=== PATIENT | male | born 1950 | race Two or more races ===

== ENCOUNTER 2019-08-27 11:42 | Inpatient (IN) | payer OTHER, MEDICARE ==
[2019-08-27] MEDS ORDERED: IPRATROPIUM-ALBUTEROL 3 ML NEB INHALATION STA (12:02)
[2019-08-27] MEDS ORDERED: SODIUM CHLORIDE 0.9% 500 ML 500 ML IV STA (12:02)
--- NOTE | 2019-08-27 12:31 | ED ---
General Adult HPI - General Chief complaint: Shortness of Breath Stated complaint: SOB Time Seen by Provider: 08/27/19 11:45 Source: patient, family, RN notes reviewed, old records reviewed Mode of arrival: wheelchair Limitations: physical limitation - History of Present Illness Initial comments: This a 69-year-old male who presents emergency Department complaining of difficulty breathing. Patient states she has a history of COPD. Patient states he just hasn't been feeling well over the 2 weeks. Patient states he's had an intermittent fever. Patient denies any chest pain. Patient denies any palpitations. Patient states he's had a fever up 100.5. Patient denies any sputum production but he states he has had a cough for the whole time. Patient states he also feels tired. - Related Data Allergies Allergy/AdvReac Type Severity Reaction Status Date / Time No Known Allergies Allergy Verified 08/27/19 11:49 Review of Systems ROS Statement: Those systems with pertinent positive or pertinent negative responses have been documented in the HPI. ROS Other: All systems not noted in ROS Statement are negative. Past Medical History Past Medical History: Asthma, Diabetes Mellitus History of Any Multi-Drug Resistant Organisms: None Reported Past Surgical History: Orthopedic Surgery Additional Past Surgical History / Comment(s): tonja knee surgery. Past Psychological History: No Psychological Hx Reported Smoking Status: Current every day smoker Past Alcohol Use History: None Reported Past Drug Use History: None Reported General Exam - General Exam Comments Initial Comments: GENERAL: Patient is well-developed and well-nourished. Patient is nontoxic and well- hydrated and is in moderate distress. ENT: Neck is soft and supple. No significant lymphadenopathy is noted. Oropharynx is clear. Moist mucous membranes. Neck has full range of motion without eliciting any pain. EYES: The sclera were anicteric and conjunctiva were pink and moist. Extraocular movements were intact and pupils were equal round and reactive to light. Eyeli ds were unremarkable. PULMONARY: Patient has crackles in the right base. CARDIOVASCULAR: There is a regular rate and rhythm without any murmurs gallops or rubs. ABDOMEN: Soft and nontender with normal bowel sounds. SKIN: Skin is clear with no lesions or rashes and otherwise unremarkable. NEUROLOGIC: Patient is alert and oriented x3. Cranial nerves II through XII are grossly intact. Motor and sensory are also intact. Normal speech, volume and content. Symmetrical smile. MUSCULOSKELETAL: Normal extremities with adequate strength and full range of motion. LYMPHATICS: No significant lymphadenopathy is noted PSYCHIATRIC: Normal psychiatric evaluation. Limitations: physical limitation Course Vital Signs 08/27/19 08/27/19 08/27/19 11:43 12:26 12:56 Temperature 97.7 F Pulse Rate 41 L 82 Respiratory 16 20 Rate Blood Pressure 135/65 O2 Sat by Pulse 97 Oximetry 08/27/19 13:05 Temperature Pulse Rate 82 Respiratory Rate Blood Pressure O2 Sat by Pulse Oximetry Medical Decision Making - Medical Decision Making EKG shows normal sinus rhythm at 80 bpm [place] interval 184 QRS is 96 QT interval 346 QTC is 418. Patient's EKG shows no ST segment elevation or depression X-ray shows right lower lobe pneumonia. This occurred at 145 p.m. I started the patient on antibiotics. I spoke with expiratory agreed to admit the patient admitted the patient wrote admitting orders. - Lab Data Result diagrams: 08/27/19 12:07 08/27/19 12:07 Lab Results 08/27/19 08/27/19 08/27/19 Range/Units 12:07 12:07 12:07 WBC 11.8 H (3.8-10.6) k/uL RBC 4.87 (4.30-5.90) m/uL Hgb 15.2 (13.0-17.5) gm/dL Hct 44.2 (39.0-53.0) % MCV 90.8 (80.0-100.0) fL MCH 31.2 (25.0-35.0) pg MCHC 34.4 (31.0-37.0) g/dL RDW 13.0 (11.5-15.5) % Plt Count 231 (150-450) k/uL Neutrophils % 91 % Lymphocytes % 4 % Monocytes % 4 % Eosinophils % 0 % Basophils % 0 % Neutrophils # 10.7 H (1.3-7.7) k/uL Lymphocytes # 0.5 L (1.0-4.8) k/uL Monocytes # 0.5 (0-1.0) k/uL Eosinophils # 0.0 (0-0.7) k/uL Basophils # 0.0 (0-0.2) k/uL PT 10.3 (9.0-12.0) sec INR 1.0 (<1.2) APTT 28.5 (22.0-30.0) sec D-Dimer 0.73 H (<0.60) mg/L FEU Sodium 140 (137-145) mmol/L Potassium 5.4 H (3.5-5.1) mmol/L Chloride 108 H (98-107) mmol/L Carbon Dioxide 16 L (22-30) mmol/L Anion Gap 16 mmol/L BUN 40 H (9-20) mg/dL Creatinine 1.73 H (0.66-1.25) mg/dL Est GFR (CKD-EPI)AfAm 46 (>60 ml/min/1.73 sqM) Est GFR (CKD-EPI)NonAf 40 (>60 ml/min/1.73 sqM) Glucose 129 H (74-99) mg/dL Plasma Lactic Acid Deon (0.7-2.0) mmol/L Calcium 8.2 L (8.4-10.2) mg/dL Magnesium 1.7 (1.6-2.3) mg/dL Total Bilirubin 0.7 (0.2-1.3) mg/dL AST 50 (17-59) U/L ALT 25 (4-49) U/L Alkaline Phosphatase 59 (38-126) U/L Troponin I (0.000-0.034) ng/mL NT-Pro-B Natriuret Pep pg/mL Total Protein 6.6 (6.3-8.2) g/dL Albumin 3.9 (3.5-5.0) g/dL 08/27/19 08/27/19 08/27/19 Range/Units 12:07 12:07 12:07 WBC (3.8-10.6) k/uL RBC (4.30-5.90) m/uL Hgb (13.0-17.5) gm/dL Hct (39.0-53.0) % MCV (80.0-100.0) fL MCH (25.0-35.0) pg MCHC (31.0-37.0) g/dL RDW (11.5-15.5) % Plt Count (150-450) k/uL Neutrophils % % Lymphocytes % % Monocytes % % Eosinophils % % Basophils % % Neutrophils # (1.3-7.7) k/uL Lymphocytes # (1.0-4.8) k/uL Monocytes # (0-1.0) k/uL Eosinophils # (0-0.7) k/uL Basophils # (0-0.2) k/uL PT (9.0-12.0) sec INR (<1.2) APTT (22.0-30.0) sec D-Dimer (<0.60) mg/L FEU Sodium (137-145) mmol/L Potassium (3.5-5.1) mmol/L Chloride (98-107) mmol/L Carbon Dioxide (22-30) mmol/L Anion Gap mmol/L BUN (9-20) mg/dL Creatinine (0.66-1.25) mg/dL Est GFR (CKD-EPI)AfAm (>60 ml/min/1.73 sqM) Est GFR (CKD-EPI)NonAf (>60 ml/min/1.73 sqM) Glucose (74-99) mg/dL Plasma Lactic Acid Deon 2.1 H* (0.7-2.0) mmol/L Calcium (8.4-10.2) mg/dL Magnesium (1.6-2.3) mg/dL Total Bilirubin (0.2-1.3) mg/dL AST (17-59) U/L ALT (4-49) U/L Alkaline Phosphatase (38-126) U/L Troponin I <0.012 (0.000-0.034) ng/mL NT-Pro-B Natriuret Pep 1250 pg/mL Total Protein (6.3-8.2) g/dL Albumin (3.5-5.0) g/dL Disposition Clinical Impression: Pneumonia Disposition: ADMITTED IP TO THIS [facility] Time of Disposition: 14:20
--- NOTE | 2019-08-27 12:37 | XR ---
EXAMINATION TYPE: XR chest 2V DATE OF EXAM: 08/27/2019 COMPARISON: NONE HISTORY: Difficulty breathing TECHNIQUE: Frontal and lateral views of the chest are obtained. FINDINGS: Some minimal patchy densities present in the mid lungs. No evident pneumothorax or pleural effusion. Cardiac mediastinal silhouette, pulmonary vascularity and ambar are within normal limits. A madeleine is dense. IMPRESSION: Correlate for pneumonia. Follow-up recommended.
[2019-08-27 12:42] LABS: Basophils % (A) 0 %; Eosinophils % (A) 0 %; HCT 44.2 % (39.0-53.0); HGB 15.2 gm/dL (13.0-17.5); Lymphocytes # (A) 0.5 k/uL (1.0-4.8); Lymphocytes % (A) 4 %; MCH 31.2 pg (25.0-35.0); MCHC 34.4 g/dL (31.0-37.0); MCV 90.8 fL (80.0-100.0); Mean Platelet Volume 7.7; Monocytes # (A) 0.5 k/uL (0-1.0); Monocytes % (A) 4 %; Neutrophils # (A) 10.7 k/uL (1.3-7.7); Neutrophils % (A) 91 %; Platelet Count 231 k/uL (150-450); RBC 4.87 m/uL (4.30-5.90); WBC 11.8 k/uL (3.8-10.6)
[2019-08-27 12:53] LABS: Albumin 3.9 g/dL (3.5-5.0); Calcium 8.2 mg/dL (8.4-10.2); Magnesium 1.7 mg/dL (1.6-2.3); Potassium 5.4 mmol/L (3.5-5.1); Total Bilirubin 0.7 mg/dL (0.2-1.3); Total Protein 6.6 g/dL (6.3-8.2)
[2019-08-27 13:04] LABS: Partial Thromboplastin Time 28.5 sec (22.0-30.0); Prothrombin Time 10.3 sec (9.0-12.0)
[2019-08-27 13:08] LABS: D-Dimer 0.73 mg/L FEU (<0.60)
[2019-08-27] MEDS ORDERED: cefTRIAXone IN SWFI 1,000 MG/10 ML SYRINGE IVP STA (14:14)
[2019-08-27] MEDS ORDERED: PNEUMONIA PROTOCOL UTILIZED 1 EACH MISC PO PRN (14:22)
--- NOTE | 2019-08-27 14:23 | CT ---
EXAMINATION TYPE: CT chest angio for PE DATE OF EXAM: 08/27/2019 COMPARISON: Radiograph same day HISTORY: 69-year-old male Difficulty breathing and cough x2 weeks. TECHNIQUE: Contiguous axial scanning of the chest performed with IV Contrast, patient injected with 8 0ml mL of Isovue 370. Coronal/sagittal MIP reconstructions performed. CT DLP: 955.8 mGycm Automated exposure control for dose reduction was used. FINDINGS: Heart normal size without pericardial effusion. Aorta normal caliber with conventional branching anatomy. Scattered borderline and mildly enlarged mediastinal and right hilar lymph nodes. These measure up to 1.1 cm left tracheobronchial angle, 1.9 cm subcarinal, and 1.1 cm right infrahilar. Scattered pleural-based calcifications on the right and slight volume loss right hemithorax. Possible sequela of prior empyema, pleurodesis, or hemothorax. Multifocal patchy peripheral groundglass opacities. No pleural effusion. Gallbladder borderline hydropic at 4.2 cm wide. No surrounding inflammation. Probably related to fast ing state. If right upper quadrant pain, ultrasound or HIDA scan. Bones: Mild anterior endplate spondylosis lower thoracic spine. IMPRESSION: 1. MULTIFOCAL BILATERAL PERIPHERAL GROUNDGLASS INFILTRATES. SOME DIFFERENTIAL CONSIDERATIONS INCLUDE ATYPICAL PNEUMONIAS (INCLUDING COVID PNEUMONIA), INTERSTITIAL PNEUMONITIS (SUCH NSIP OR FIELD MERCHANDISER), AND HYPERSENSITIVITY PNEUMONITIS. 2. A FEW BORDERLINE and MILDLY ENLARGED MEDIASTINAL AND RIGHT HILAR LYMPH NODES MEASURING UP TO 1.1 C M AT THE RIGHT HILUM AND 1.9 CM SUBCARINAL. PROBABLY REACTIVE. 3. VOLUME LOSS IN THE RIGHT HEMITHORAX WITH PLEURAL CALCIFICATIONS, POSSIBLE SEQUELA OF PRIOR PLEUROD ESIS OR OLD EPISODE OF EMPYEMA/PNEUMOTHORAX.
[2019-08-27] MEDS ORDERED: AZITHROMYCIN 500 MG in SODIUM CHLORIDE 0.9% 250 ML IVPB STA (14:25)
[2019-08-27 17:30] LABS: Glucose,Whole Blood 63 mg/dL (75-99)
[2019-08-27 17:52] LABS: Glucose,Whole Blood 87 mg/dL (75-99)
[2019-08-27] MEDS ORDERED: IPRATROPIUM-ALBUTEROL 3 ML NEB INHALATION PRN (18:00)
[2019-08-27] MEDS: SODIUM CHLORIDE 0.9% 1,000 ML IV SCH (19:18)
[2019-08-27 20:41] LABS: Glucose,Whole Blood 86 mg/dL (75-99)
[2019-08-27] MEDS: INSULIN ASPART (NovoLOG) 100 UNIT/ML VIAL SQ SCH (20:42)
[2019-08-27] MEDS: ATORVASTATIN 40 MG TAB PO SCH (20:47)
[2019-08-27] MEDS: ASPIRIN 81 MG PO SCH (20:47)
[2019-08-27] MEDS ORDERED: INSULIN ASPART (NovoLOG) 100 UNIT/ML VIAL SQ SCH (21:00)
[2019-08-28] MEDS: SODIUM CHLORIDE 0.9% 1,000 ML IV SCH ×3 (05:16→17:34)
[2019-08-28 07:19] LABS: Glucose,Whole Blood 105 mg/dL (75-99)
[2019-08-28] MEDS: INSULIN ASPART (NovoLOG) 100 UNIT/ML VIAL SQ SCH ×4 (07:20→20:05)
--- NOTE | 2019-08-28 08:02 | XR ---
EXAMINATION TYPE: XR chest 1V portable DATE OF EXAM: 08/28/2019 COMPARISON: 08/27/2019 INDICATION: Covid positive, shortness of breath TECHNIQUE: Single frontal view of the chest is obtained. FINDINGS: The heart size is normal. The pulmonary vasculature is normal. Mild scattered infiltrates are within the right mid and lower lung field. Findings are similar to com parison. IMPRESSION: 1. Mild scattered peripheral right mid and lower lung field infiltrates. Exam appears stable from zeenat or
[2019-08-28] MEDS: HYDROCHLOROTHIAZIDE 12.5 MG CAP PO SCH (09:19)
[2019-08-28] MEDS: LISINOPRIL 20 MG TAB PO SCH (09:19)
[2019-08-28] MEDS: DEXAMETHASONE 4 MG TAB PO SCH (10:36)
[2019-08-28] MEDS: ENOXAPARIN 40 MG/0.4 ML SYRINGE SQ SCH (10:36)
[2019-08-28] MEDS ORDERED: TIOTROPIUM 18 MCG/PUFF INHALER INHALATION PRN (11:13)
--- NOTE | 2019-08-28 11:48 | P.CNPUL ---
History of Present Illness Consult date: 08/28/19 Reason for consult: dyspnea Chief complaint: Dyspnea, intermittent fever, COVID 19 History of present illness: 69-year-old white male patient of Dr. Cueva, who presented to the emergency department on 08/01/2019 with complaints of 2 week history of increasing shortness of breath, not feeling well, intermittent fever. He is fever was up to 100.5F, his cough is dry, no sputum production, overall patient is feeling fatigued. Patient does have a history of COPD, is a current every day smoker, diabetes mellitus, hypertension, hyperlipidemia, osteoarthritis with previous history of bilateral knee surgeries. Patient has been afebrile while in the hospital, vital signs are stable, patient is on room air, pulse ox is 97%. Admission lab work showed white blood cell count of 11.8, hemoglobin is 15.2, d- dimer was 0.73, sodium is 140, potassium is 5.4, chloride is 108, CO2 16, BUN is 40, creatinine is 1.73, LFTs were within normal limits, LDH was 734, proBNP was 1250, troponin was less than 0.012, CTA chest was obtained showing multifocal bilateral peripheral groundglass infiltrates with saturation for atypical pneumonia, interstitial pneumonitis. A few borderline and mildly enlarged mediastinal and right hilar lymph nodes measuring up to 1.1 cm in the right hilum and 1.9 cm subcarinal, likely a reactive. Volume loss in the right hemithorax with pleural calcifications possibly related to prior pleurodesis or old episode of empyema/pneumothorax. Patient's findings were suspicious for COVID 19 related pneumonitis. Patient was empirically placed on accommodation of Rocephin and azithromycin, and today his Covid 19 PCR came back positive. he remains in droplet precautions, today he is calm and comfortable, on room air his pulse ox is 95%, no complaints of chest pain, some shortness of breath and a dry nonproductive cough, breathing seems to be and nonlabored, patient has been afebrile since admission. Review of Systems All systems: negative Constitutional: Reports lethargy, Reports weakness, Denies chills, Denies fever Eyes: denies blurred vision, denies pain Ears, nose, mouth and throat: Denies headache, Denies sore throat Cardiovascular: Denies chest pain, Denies shortness of breath Respiratory: Reports cough, Reports dyspnea Gastrointestinal: Denies abdominal pain, Denies diarrhea, Denies nausea, Denies vomiting Musculoskeletal: Denies myalgias Integumentary: Denies pruritus, Denies rash Neurological: Denies numbness, Denies weakness Psychiatric: Denies anxiety, Denies depression Endocrine: Denies fatigue, Denies weight change Past Medical History Past Medical History: Asthma, Diabetes Mellitus, Hyperlipidemia, Hypertension History of Any Multi-Drug Resistant Organisms: None Reported Past Surgical History: Orthopedic Surgery Additional Past Surgical History / Comment(s): tonja knee surgery. Past Psychological History: No Psychological Hx Reported Smoking Status: Former smoker Past Alcohol Use History: None Reported Past Drug Use History: None Reported - Past Family History Father Family Medical History: Diabetes Mellitus Medications and Allergies Home Medications Medication Instructions Recorded Confirmed Type Aspirin EC [Ecotrin Low Dose] 81 mg PO HS 08/27/19 08/27/19 History Atorvastatin [Lipitor] 40 mg PO DAILY 08/27/19 08/27/19 History Budesonide/Formoterol Fumarate 2 puff INHALATION RT-BID 08/27/19 08/27/19 Histo ry [Symbicort 80-4.5 Mcg Inhaler] Cholecalciferol (Vitamin D3) 50 mcg PO HS 08/27/19 08/27/19 History [Vitamin D3] Glimepiride [Amaryl] 2 mg PO AC-BRKFST 08/27/19 08/27/19 History Hydrochlorothiazide 12.5 mg PO DAILY 08/27/19 08/27/19 History Lisinopril 40 mg PO DAILY 08/27/19 08/27/19 History metFORMIN HCL [Glucophage] 1,000 mg PO HS 08/27/19 08/27/19 History metFORMIN HCL [Glucophage] 500 mg PO DAILY 08/27/19 08/27/19 History Allergies Allergy/AdvReac Type Severity Reaction Status Date / Time No Known Allergies Allergy Verified 08/27/19 15:40 Physical Exam Vitals: Vital Signs Temp Pulse Pulse Resp BP BP Pulse Ox 08/28/19 07:00 98.5 F 85 18 134/85 95 08/28/19 02:23 98.9 F 75 18 151/75 94 L 08/27/19 20:15 98.5 F 72 20 156/78 95 08/27/19 19:18 20 08/27/19 17:17 97.7 F 76 18 143/81 95 08/27/19 16:50 71 18 115/59 98 08/27/19 13:05 82 08/27/19 12:56 82 08/27/19 12:26 20 08/27/19 11:43 97.7 F 41 L 16 135/65 97 Intake and Output 08/27/19 08/28/19 08/28/19 22:59 06:59 14:59 Other: Voiding Method Toilet Toilet Toilet # Voids 2 2 Weight 123.831 kg GENERAL EXAM: Alert, very pleasant, 61-year-old white male, on room air, with a pulse ox of 95%, comfortable in no apparent distress. HEAD: Normocephalic/atraumatic. EYES: Normal reaction of pupils, equal size. Conjunctiva pink, sclera white. NOSE: Clear with pink turbinates. THROAT: No erythema or exudates. NECK: No masses, no JVD, no thyroid enlargement, no adenopathy. CHEST: No chest wall deformity. Symmetrical expansion. LUNGS: Equal air entry with bibasilar crackles, but no wheezes CVS: Regular rate and rhythm, normal S1 and S2, no gallops, no murmurs, no rubs ABDOMEN: Soft, nontender. No hepatosplenomegaly, normal bowel sounds, no guarding or rigidity. EXTREMITIES: No clubbing, no edema, no cyanosis, 2+ pulses and upper and lower extremities. MUSCULOSKELETAL: Muscle strength and tone normal. SPINE: No scoliosis or deformity SKIN: No rashes CENTRAL NERVOUS SYSTEM: Alert and oriented -3. No focal deficits, tone is normal in all 4 extremities. PSYCHIATRIC: Alert and oriented -3. Appropriate affect. Intact judgment and insight. Results - Laboratory Findings CBC and BMP: 08/27/19 12:07 08/27/19 12:07 PT/INR, D-dimer PT 10.3 sec (9.0-12.0) 08/27/19 12:07 INR 1.0 (<1.2) 08/27/19 12:07 D-Dimer 0.73 mg/L FEU (<0.60) H 08/27/19 12:07 Abnormal lab findings: Abnormal Labs 08/27/19 08/27/19 08/27/19 12:07 12:07 12:07 WBC 11.8 H Neutrophils # 10.7 H Lymphocytes # 0.5 L Fibrinogen D-Dimer 0.73 H Potassium 5.4 H Chloride 108 H Carbon Dioxide 16 L BUN 40 H Creatinine 1.73 H Glucose 129 H POC Glucose (mg/dL) Plasma Lactic Acid Deon Calcium 8.2 L Lactate Dehydrogenase Coronavirus (PCR) 08/27/19 08/27/19 08/27/19 12:07 12:07 17:29 WBC Neutrophils # Lymphocytes # Fibrinogen D-Dimer Potassium Chloride Carbon Dioxide BUN Creatinine Glucose POC Glucose (mg/dL) 63 L Plasma Lactic Acid Deon 2.1 H* Calcium Lactate Dehydrogenase Coronavirus (PCR) Detected H 08/28/19 08/28/19 08/28/19 07:13 09:44 09:44 WBC Neutrophils # Lymphocytes # Fibrinogen 609 H D-Dimer Potassium Chloride Carbon Dioxide BUN Creatinine Glucose POC Glucose (mg/dL) 105 H Plasma Lactic Acid Deon Calcium Lactate Dehydrogenase 734 H Coronavirus (PCR) - Diagnostic Findings Chest x-ray: report reviewed, image reviewed CT scan - chest: report reviewed, image reviewed Assessment and Plan Plan: Assessment: #1. Acute COVID 19 related pneumonitis, COVID 19 PCR positive #2. Intermittent fevers, fatigue, shortness of breath and nonproductive cough related to the above #3. Elevated d-dimer, at 0.73, likely related to COVID 19 infection #4. Multifocal bilateral peripheral groundglass infiltrates seen on the CT chest, and a few borderline and mildly enlarged mediastinal and right hilar lymph nodes, possibly reactive, related to COVID 19 #5. Hypertension #6. History of COPD #7. Current smoker #8. Diabetes mellitus type 2 #9. Osteoarthritis with previous history of bilateral knee surgery #10. Hyperlipidemia Plan: We'll stop the antibiotics, will start the dexamethasone 6 mg daily for a total course of 10 days, continue Lovenox prophylactic dose 40 mg subcu daily, will follow inflammatory markers, CTA chest and chest x-ray has been reviewed. Patient is not in any acute distress, he is on room air, his symptoms are mild. We'll continue to monitor I performed a history & physical examination of the patient and discussed their management with my nurse practitioner, China Liu. I reviewed the nurse practitioner's note and agree with the documented findings and plan of care. Lung sounds are positive for diminished breath sounds with bibasilar crackles. The findings and the impression was discussed with the patient. I attest to the documentation by the nurse practitioner. Time with Patient: Greater than 30
[2019-08-28 11:58] LABS: Glucose,Whole Blood 134 mg/dL (75-99)
[2019-08-28] MEDS ORDERED: AZITHROMYCIN 500 MG TAB PO SCH (15:00)
[2019-08-28] MEDS: ALBUTEROL HFA INHALER INHALATION PRN ×2 (15:43→21:22)
[2019-08-28 17:16] LABS: Glucose,Whole Blood 250 mg/dL (75-99)
[2019-08-28] MEDS: ASPIRIN 81 MG PO SCH (19:53)
[2019-08-28] MEDS: ATORVASTATIN 40 MG TAB PO SCH (19:53)
[2019-08-28 21:02] LABS: Glucose,Whole Blood 304 mg/dL (75-99)
--- NOTE | 2019-08-28 23:54 | P.HPIM ---
History of Present Illness H&P Date: 08/28/19 Chief Complaint: fever, cough Rashad Virgen is a 69 yo M with PMH of COPD, T2DM, HTN, HLD who presented to the ED complaining of a 2 week history of increasing shortness of breath, not feeling well, intermittent fever. He is fever was up to 100.5F, his cough is dry, no sputum production, overall patient is feeling fatigued. He notes he did get a sore throat when it started and the cough and respiratory symptoms have been worsening over the past few days. On presentation vitals stable, SpO2 97% on RA, WBC 11.8, creatinine is 1.73, LFTs were within normal limits, LDH was 734, proBNP was 1250, trop negative, CTA chest was obtained showing multifocal bilateral peripheral groundglass infiltrates. Pt was empirically started on rocephin and azithromycin and his COVID PCR did then come back positive. Currently he is doing well, was started on decadron and SpO2 94% on RA. Review of Systems All systems: negative Constitutional: Reports chills, Reports fever, Reports malaise Eyes: denies blurred vision, denies pain Ears, nose, mouth and throat: Denies headache, Denies sore throat Cardiovascular: Denies chest pain, Denies shortness of breath Respiratory: Reports cough, Reports dyspnea Gastrointestinal: Denies abdominal pain, Denies diarrhea, Denies nausea, Denies vomiting Musculoskeletal: Denies myalgias Integumentary: Denies pruritus, Denies rash Neurological: Denies numbness, Denies weakness Psychiatric: Denies anxiety, Denies depression Endocrine: Denies fatigue, Denies weight change Past Medical History Past Medical History: Asthma, Diabetes Mellitus, Hyperlipidemia, Hypertension History of Any Multi-Drug Resistant Organisms: None Reported Past Surgical History: Orthopedic Surgery Additional Past Surgical History / Comment(s): tonja knee surgery. Past Psychological History: No Psychological Hx Reported Smoking Status: Former smoker Past Alcohol Use History: None Reported Past Drug Use History: None Reported - Past Family History Father Family Medical History: Diabetes Mellitus Medications and Allergies Home Medications Medication Instructions Recorded Confirmed Type Aspirin EC [Ecotrin Low Dose] 81 mg PO HS 08/27/19 08/27/19 History Atorvastatin [Lipitor] 40 mg PO DAILY 08/27/19 08/27/19 History Budesonide/Formoterol Fumarate 2 puff INHALATION RT-BID 08/27/19 08/27/19 History [Symbicort 80-4.5 Mcg Inhaler] Cholecalciferol (Vitamin D3) 50 mcg PO HS 08/27/19 08/27/19 History [Vitamin D3] Glimepiride [Amaryl] 2 mg PO AC-BRKFST 08/27/19 08/27/19 History Hydrochlorothiazide 12.5 mg PO DAILY 08/27/19 08/27/19 History Lisinopril 40 mg PO DAILY 08/27/19 08/27/19 History metFORMIN HCL [Glucophage] 1,000 mg PO HS 08/27/19 08/27/19 History metFORMIN HCL [Glucophage] 500 mg PO DAILY 08/27/19 08/27/19 History Allergies Allergy/AdvReac Type Severity Reaction Status Date / Time No Known Allergies Allergy Verified 08/27/19 15:40 Physical Exam Vitals: Vital Signs Temp Pulse Resp BP Pulse Ox 08/28/19 19:46 98.6 F 82 16 172/87 96 08/28/19 15:00 98.7 F 86 20 135/93 97 08/28/19 07:00 98.5 F 85 18 134/85 95 08/28/19 02:23 98.9 F 75 18 151/75 94 L Intake and Output 08/28/19 08/28/19 08/29/19 14:59 22:59 06:59 Intake Total 450 200 Balance 450 200 Intake: Intake, IV Titration 450 Amount Sodium Chloride 0.9% 1, 400 000 ml @ 120 mls/hr IV . Q8H20M [facility] Rx#:[id number] cefTRIAXone 1 gm In 50 Sodium Chloride 0.9% 50 ml @ 100 mls/hr IVPB Q24HR [facility] Rx#:[id number] Oral 200 Other: Voiding Method Toilet Toilet # Voids 1 General: well nourished, well developed, NAD. Vitals reviewed Eyes: PERRL, EOMI, conjunctiva normal HENT: normocephalic, mucus membranes moist Neck: supple, no JVD Lungs: normal respiratory effort, no wheezes or rales CV: Regular rate and rhythm, no murmur. Peripheral pulses 2+ Abdomen: soft, nondistended, no organomegaly Lymph: no cervical or axillary LAD Skin: warm and dry. Neuro: A&Ox3, normal mood and affect Results CBC & Chem 7: 08/27/19 12:07 08/27/19 12:07 Labs: Abnormal Lab Results - Last 24 Hours (Table) 08/27/19 08/28/19 08/28/19 Range/Units 12:07 07:13 09:44 Fibrinogen 609 H (200-500) mg/dL POC Glucose (mg/dL) 105 H (75-99) mg/dL Lactate Dehydrogenase (313-618) U/L Coronavirus (PCR) Detected H (Not Detected) 08/28/19 08/28/19 08/28/19 Range/Units 09:44 11:56 17:12 Fibrinogen (200-500) mg/dL POC Glucose (mg/dL) 134 H 250 H (75-99) mg/dL Lactate Dehydrogenase 734 H (313-618) U/L Coronavirus (PCR) (Not Detected) 08/28/19 Range/Units 19:54 Fibrinogen (200-500) mg/dL POC Glucose (mg/dL) 304 H (75-99) mg/dL Lactate Dehydrogenase (313-618) U/L Coronavirus (PCR) (Not Detected) Microbiology - Last 24 Hours (Table) 08/27/19 14:40 Blood Culture - Preliminary Blood No Growth after 24 hours Thrombosis Risk Factor Assmnt - Choose All That Apply Each Factor Represents 1 point: Obesity (BMI >25) Each Risk Factor Represents 2 Points: Age 61-74 years Thrombosis Risk Factor Assessment Total Risk Factor Score: 3 Thrombosis Risk Factor Assessment Level: Moderate Risk Assessment and Plan (1) COVID-19 Current Visit: Yes Status: Acute Code(s): U07.1 - COVID-19 SNOMED Code(s): 493973635 (2) Other viral pneumonia Current Visit: Yes Status: Acute Code(s): J12.89 - OTHER VIRAL PNEUMONIA SNOMED Code(s): 80504832 (3) Acute kidney injury Current Visit: Yes Status: Acute Code(s): N17.9 - ACUTE KIDNEY FAILURE, UNSPECIFIED SNOMED Code(s): 22693617 (4) COPD (chronic obstructive pulmonary disease) Current Visit: Yes Status: Acute Code(s): J44.9 - CHRONIC OBSTRUCTIVE PUL MONARY DISEASE, UNSPECIFIED SNOMED Code(s): 67763240 (5) Hypertension Current Visit: Yes Status: Acute Code(s): I10 - ESSENTIAL (PRIMARY) HYPERTENSION SNOMED Code(s): 60492429 Plan: 1. Viral pneumonia due to COVID19. Pulmonary consult. Pt started on decadron daily. Continue to monitor, O2 support as needed. Duonebs 2. Acute kidney injury. Start IV fluids 3. Elevated d-dimer, secondary to COVID. Lovenox for DVT prophylaxis 4. HTN
[2019-08-29 03:23] LABS: Ferritin 2143.1 ng/mL (22.0-322.0)
[2019-08-29] MEDS: SODIUM CHLORIDE 0.9% 1,000 ML IV SCH (03:47)
[2019-08-29 06:57] LABS: Glucose,Whole Blood 181 mg/dL (75-99)
[2019-08-29 07:16] VITALS: BP 169/85; PULSE 75; RESP 18; TEMP 98.5
[2019-08-29] MEDS: ALBUTEROL HFA INHALER INHALATION PRN (08:12)
[2019-08-29] MEDS: LISINOPRIL 20 MG TAB PO SCH (08:47)
[2019-08-29] MEDS: ENOXAPARIN 40 MG/0.4 ML SYRINGE SQ SCH (08:47)
[2019-08-29] MEDS: DEXAMETHASONE 4 MG TAB PO SCH (08:47)
[2019-08-29] MEDS: INSULIN ASPART (NovoLOG) 100 UNIT/ML VIAL SQ SCH ×2 (08:47→13:07)
[2019-08-29] MEDS: HYDROCHLOROTHIAZIDE 12.5 MG CAP PO SCH (08:48)
[2019-08-29 10:37] LABS: Basophils % (A) 0 %; Eosinophils % (A) 0 %; HGB 12.3 gm/dL (13.0-17.5); Lymphocytes # (A) 0.5 k/uL (1.0-4.8); Lymphocytes % (A) 9 %; MCH 30.9 pg (25.0-35.0); MCV 90.6 fL (80.0-100.0); Mean Platelet Volume 7.1; Monocytes # (A) 0.3 k/uL (0-1.0); Monocytes % (A) 5 %; Neutrophils # (A) 4.6 k/uL (1.3-7.7); Neutrophils % (A) 84 %; Platelet Count 304 k/uL (150-450); RBC 3.98 m/uL (4.30-5.90); WBC 5.5 k/uL (3.8-10.6)
[2019-08-29 10:45] LABS: C Reactive Protein 80.3 mg/L (<10.0); Calcium 7.5 mg/dL (8.4-10.2); Potassium 5.2 mmol/L (3.5-5.1); Total Bilirubin 0.5 mg/dL (0.2-1.3); Total Protein 5.5 g/dL (6.3-8.2)
[2019-08-29 10:52] LABS: D-Dimer 0.66 mg/L FEU (<0.60)
[2019-08-29 11:24] LABS: Glucose,Whole Blood 212 mg/dL (75-99)
--- NOTE | 2019-08-29 13:15 | P.PN ---
Subjective Progress Note Date: 08/29/19 Principal diagnosis: Acute CoVID 19 related pneumonitis 69-year-old white male patient of Dr. Cueva, who presented to the emergency department on 7 08/01/2019 with complaints of 2 week history of increasing shortness of breath, not feeling well, intermittent fever. He is fever was up to 100.5F, his cough is dry, no sputum production, overall patient is feeling fatigued. Patient does have a history of COPD, is a current every day smoker, diabetes mellitus, hypertension, hyperlipidemia, osteoarthritis with previous history of bilateral knee surgeries. Patient has been afebrile while in the hospital, vital signs are stable, patient is on room air, pulse ox is 97%. A dmission lab work showed white blood cell count of 11.8, hemoglobin is 15.2, d- dimer was 0.73, sodium is 140, potassium is 5.4, chloride is 108, CO2 16, BUN is 40, creatinine is 1.73, LFTs were within normal limits, LDH was 734, proBNP was 1250, troponin was less than 0.012, CTA chest was obtained showing multifocal bilateral peripheral groundglass infiltrates with saturation for atypical pneumonia, interstitial pneumonitis. A few borderline and mildly enlarged mediastinal and right hilar lymph nodes measuring up to 1.1 cm in the right hilum and 1.9 cm subcarinal, likely a reactive. Volume loss in the right hemithorax with pleural calcifications possibly related to prior pleurodesis or old episode of empyema/pneumothorax. Patient's findings were suspicious for COVID 19 related pneumonitis. Patient was empirically placed on accommodation of Rocephin and azithromycin, and today his Covid 19 PCR came back positive. he remains in droplet precautions, today he is calm and comfortable, on room air his pulse ox is 95%, no complaints of chest pain, some shortness of breath and a dry nonproductive cough, breathing seems to be and nonlabored, patient has been afebrile since admission. The patient is seen today 08/29/2019 in follow-up on the regular medical floor. He remains on droplet isolation. He is currently sitting up in a chair at the bedside. Awake and alert in no acute distress. He is maintaining good O2 saturations in the mid 90s on room air. He's been afebrile. Hemodynamically stable. Blood culture reveals no growth to date. White count 5.5. Hemoglobin 12.3. D-dimer 0.66. Fibrinogen 586. Sodium 135. Potassium 5.2. Creatinine 1.22. LDH 579. C-reactive protein 80.3. He remains on dexamethasone 4 mg daily. Objective - Vital Signs Vital signs: Vital Signs Temp 98.5 F 08/29/19 07:00 Pulse 75 08/29/19 07:40 Resp 18 08/29/19 07:40 BP 169/85 08/29/19 07:00 Pulse Ox 95 08/29/19 08:12 Intake & Output 08/28/19 08/29/19 08/29/19 18:59 06:59 18:59 Intake Total 450 300 Balance 450 300 Intake: Intake, IV Titration 450 Amount Sodium Chloride 0.9% 1, 400 000 ml @ 120 mls/hr IV . Q8H20M MAYELIN Rx#:[id number] cefTRIAXone 1 gm In 50 Sodium Chloride 0.9% 50 ml @ 100 mls/hr IVPB Q24HR MAYELIN Rx#:[id number] Oral 300 Other: Voiding Method Toilet Toilet Toilet # Voids 1 - Exam GENERAL EXAM: Alert, very pleasant, 61-year-old male patient, on room air, with a pulse ox of 95%, comfortable in no apparent distress. HEAD: Normocephalic/atraumatic. EYES: Normal reaction of pupils, equal size. Conjunctiva pink, sclera white. NOSE: Clear with pink turbinates. THROAT: No erythema or exudates. NECK: No masses, no JVD, no thyroid enlargement, no adenopathy. CHEST: No chest wall deformity. Symmetrical expansion. LUNGS: Equal air entry with bibasilar crackles, but no wheezes CVS: Regular rate and rhythm, normal S1 and S2, no gallops, no murmurs, no rubs ABDOMEN: Soft, nontender. No hepatosplenomegaly, normal bowel sounds, no guarding or rigidity. EXTREMITIES: No clubbing, no edema, no cyanosis, 2+ pulses and upper and lower extremities. MUSCULOSKELETAL: Muscle strength and tone normal. SPINE: No scoliosis or deformity SKIN: No rashes CENTRAL NERVOUS SYSTEM: Alert and oriented -3. No focal deficits, tone is normal in all 4 extremities. PSYCHIATRIC: Alert and oriented -3. Appropriate affect. Intact judgment and insight. - Labs CBC & Chem 7: 08/29/19 09:22 08/29/19 09:22 Labs: Abnormal Lab Results - Last 24 Hours (Table) 08/28/19 08/28/19 08/28/19 Range/Units 09:44 17:12 19:54 RBC (4.30-5.90) m/uL Hgb (13.0-17.5) gm/dL Hct (39.0-53.0) % Lymphocytes # (1.0-4.8) k/uL Fibrinogen (200-500) mg/dL D-Dimer (<0.60) mg/L FEU Sodium (137-145) mmol/L Potassium (3.5-5.1) mmol/L Chloride (98-107) mmol/L Carbon Dioxide (22-30) mmol/L BUN (9-20) mg/dL Glucose (74-99) mg/dL POC Glucose (mg/dL) 250 H 304 H (75-99) mg/dL Calcium (8.4-10.2) mg/dL Ferritin 2143.1 H (22.0-322.0) ng/mL C-Reactive Protein (<10.0) mg/L Total Protein (6.3-8.2) g/dL Albumin (3.5-5.0) g/dL 08/29/19 08/29/19 08/29/19 Range/Units 06:56 09:22 09:22 RBC 3.98 L (4.30-5.90) m/uL Hgb 12.3 L (13.0-17.5) gm/dL Hct 36.0 L (39.0-53.0) % Lymphocytes # 0.5 L (1.0-4.8) k/uL Fibrinogen 586 H (200-500) mg/dL D-Dimer 0.66 H (<0.60) mg/L FEU Sodium (137-145) mmol/L Potassium (3.5-5.1) mmol/L Chloride (98-107) mmol/L Carbon Dioxide (22-30) mmol/L BUN (9-20) mg/dL Glucose (74-99) mg/dL POC Glucose (mg/dL) 181 H (75-99) mg/dL Calcium (8.4-10.2) mg/dL Ferritin (22.0-322.0) ng/mL C-Reactive Protein (<10.0) mg/L Total Protein (6.3-8.2) g/dL Albumin (3.5-5.0) g/dL 08/29/19 08/29/19 Range/Units 09:22 11:19 RBC (4.30-5.90) m/uL Hgb (13.0-17.5) gm/dL Hct (39.0-53.0) % Lymphocytes # (1.0-4.8) k/uL Fibrinogen (200-500) mg/dL D-Dimer (<0.60) mg/L FEU Sodium 135 L (137-145) mmol/L Potassium 5.2 H (3.5-5.1) mmol/L Chloride 108 H (98-107) mmol/L Carbon Dioxide 21 L (22-30) mmol/L BUN 31 H (9-20) mg/dL Glucose 241 H (74-99) mg/dL POC Glucose (mg/dL) 212 H (75-99) mg/dL Calcium 7.5 L (8.4-10.2) mg/dL Ferritin (22.0-322.0) ng/mL C-Reactive Protein 80.3 H (<10.0) mg/L Total Protein 5.5 L (6.3-8.2) g/dL Albumin 3.0 L (3.5-5.0) g/dL Microbiology - Last 24 Hours (Table) 08/27/19 14:40 Blood Culture - Preliminary Blood No Growth after 24 hours Assessment and Plan Assessment: #1. Acute COVID 19 related pneumonitis, COVID 19 PCR positive #2. Intermittent fevers, fatigue, shortness of breath and nonproductive cough related to the above #3. Elevated d-dimer, at 0.73, likely related to COVID 19 infection #4. Multifocal bilateral peripheral groundglass infiltrates seen on the CT chest, and a few borderline and mildly enlarged mediastinal and right hilar lymph nodes, possibly reactive, related to COVID 19 #5. Hypertension #6. History of COPD #7. Current smoker #8. Diabetes mellitus type 2 #9. Osteoarthritis with previous history of bilateral knee surgery #10. Hyperlipidemia Plan: The patient was seen and evaluated by Dr. Artinian He is stable for discharge from the pulmonary status Complete dexamethasone for a total of 10 days Follow-up in the office in 1-2 weeks' time He is encouraged to call sooner with any worsening of symptoms or other questions or concerns To self quarantine for 2 weeks I, the cosigning physician, performed a history & physical examination of the patient. Lungs sounds with faint bibasilar crackles. Maintaining good O2 saturations in the 90s on room air. I discussed the assessment and plan of care with my nurse practitioner, Aleja Castle. I attest to the above note as dictated by her.
--- NOTE | 2019-08-29 16:32 | P.DS ---
Providers Date of admission: 08/27/19 14:22 Attending physician: Denzel Cueva MD Consults: 08/27/19 14:29 Consult Physician Urgent Consulting Provider: Martha Angulo Consult Reason/Comments: Pneumonia Do you want consulting provider notified?: Yes Primary care physician: Evelia Cueva Hospital Course: Patient is admitted for shortness of breath found to have COVID 19 pneumonia. Patient is a medically stable saturating well cleared by pulmonology to be discharged patient was discharged on Decadron. Patient's d-dimer is only 0.7 because of which a patient is not being discharged on any anticoagulation. Patient is persistently hyperkalemic because of that reason I'm cutting down the dose of lisinopril patient will need a basic metabolic profile test as an outpatient patient will be started on amlodipine. Patient came in with renal failure which improved with IV fluids patient has acute renal failure unsure whether patient has chronic kidney disease. Since her creatinine came down to 1 .2 patient is okay to restart back on metformin. Patient will continue his metformin 90 and increasing the dose of glipizide as patient is being discharged on Decadron and his blood sugars are expected to go up. PHYSICAL EXAMINATION: GENERAL: The patient is alert and oriented x3, not in any acute distress. Obese HEENT: Pupils are round and equally reacting to light. EOMI. No scleral icterus. No conjunctival pallor. Normocephalic, atraumatic. No pharyngeal erythema. No thyromegaly. CARDIOVASCULAR: S1 and S2 present. No murmurs, rubs, or gallops. PULMONARY: Chest is clear to auscultation, no wheezing or crackles. ABDOMEN: Soft, nontender, nondistended, normoactive bowel sounds. No palpable organomegaly. MUSCULOSKELETAL: No joint swelling or deformity. EXTREMITIES: No cyanosis, clubbing, or pedal edema. NEUROLOGICAL: Gross neurological examination did not reveal any focal deficits. SKIN: No rashes. Note: Because of COVID 19 isolation, some of the history and physical exam findings or indirect and obtained from nursing staff, and other physician examinations to avoid unnecessary contact with the patient. The rest of the medical problems hospital physician course please refer to the dictation of H&P from Dr. Cueva Plan - Discharge Summary Discharge Rx Participant: Yes New Discharge Prescriptions: New amLODIPine [Norvasc] 5 mg PO DAILY #30 tab Dexamethasone [Hexadrol] 4 mg PO DAILY #10 tab Continue Aspirin EC [Ecotrin Low Dose] 81 mg PO HS Atorvastatin [Lipitor] 40 mg PO DAILY Budesonide/Formoterol Fumarate [Symbicort 80-4.5 Mcg Inhaler] 2 puff INHALATION RT-BID Cholecalciferol (Vitamin D3) [Vitamin D3] 50 mcg PO HS metFORMIN HCL [Glucophage] 1,000 mg PO HS metFORMIN HCL [Glucophage] 500 mg PO DAILY Changed Glimepiride [Amaryl] 2 mg PO BID #0 Lisinopril 20 mg PO DAILY #0 Discontinued Hydrochlorothiazide 12.5 mg PO DAILY Discharge Medication List Aspirin EC [Ecotrin Low Dose] 81 mg PO HS 08/27/19 [History] Atorvastatin [Lipitor] 40 mg PO DAILY 08/27/19 [History] Budesonide/Formoterol Fumarate [Symbicort 80-4.5 Mcg Inhaler] 2 puff INHALATION RT-BID 08/27/19 [History] Cholecalciferol (Vitamin D3) [Vitamin D3] 50 mcg PO HS 08/27/19 [History] metFORMIN HCL [Glucophage] 1,000 mg PO HS 08/27/19 [History] metFORMIN HCL [Glucophage] 500 mg PO DAILY 08/27/19 [History] Dexamethasone [Hexadrol] 4 mg PO DAILY #10 tab 08/29/19 [Rx] Glimepiride [Amaryl] 2 mg PO BID #0 08/29/19 [Rx] Lisinopril 20 mg PO DAILY #0 08/29/19 [Rx] amLODIPine [Norvasc] 5 mg PO DAILY #30 tab 08/29/19 [Rx] Follow up Appointment(s)/Referral(s): Evelia Cueva DO [Primary Care Provider] - 3 Days (Office closed please call Morning.) Martha Angulo MD [STAFF PHYSICIAN] - 1 Week (Office closed please call Saturday.) Patient Instructions/Handouts: Viral Pneumonia (DC) Discharge Disposition: HOME SELF-CARE
[2019-08-30] MEDS ORDERED: DEXAMETHASONE 4 MG TAB PO SCH (09:00)
[2019-08-31 11:59] LABS: Ferritin 1459.6 ng/mL (22.0-322.0)
== END 2019-08-29 15:38 | disposition home or self-care (01) | DRG 177 ==
LOC: EC 11:42 → 4SSUR 14:22
PROVIDERS: ADMIT Family Medicine; ATTEND Family Medicine
DX: U07.1 COVID-19 (principal); J12.89 Other viral pneumonia; J44.0 Chronic obstructive pulmonary disease with (acute) lower respiratory infection; N17.9 Acute kidney failure, unspecified; E87.5 Hyperkalemia; E11.9 Type 2 diabetes mellitus without complications; M17.0 Bilateral primary osteoarthritis of knee; E78.5 Hyperlipidemia, unspecified; I10 Essential (primary) hypertension; E66.9 Obesity, unspecified; Z68.36 Body mass index [BMI] 36.0-36.9, adult; Z79.84 Long term (current) use of oral hypoglycemic drugs; Z79.82 Long term (current) use of aspirin; Z79.51 Long term (current) use of inhaled steroids; Z79.899 Other long term (current) drug therapy; Z87.891 Personal history of nicotine dependence; Z83.3 Family history of diabetes mellitus
CPT/HCPCS: 36415; 71045; 71046; 71275; 80053; 82728; 83605; 83615; 83735; 83880; 84484; 85025; 85379; 85384; 85610; 85730; 86140; 87040; 93005; 94640; 94760; 96361; 96365; 96375; 99285

== ENCOUNTER 2022-07-25 17:54 | Observation (INO) | payer OTHER, MEDICARE ==
[2022-07-25 18:48] LABS: INR 1.1 (<1.2); Partial Thromboplastin Time 23.4 sec (22.0-30.0); Prothrombin Time 11.1 sec (9.0-12.0)
[2022-07-25 18:50] LABS: Basophils % (A) 0 %; Eosinophils # (A) 0.2 k/uL (0-0.7); Eosinophils % (A) 2 %; HCT 42.4 % (39.0-53.0); HGB 14.3 gm/dL (13.0-17.5); Lymphocytes # (A) 1.3 k/uL (1.0-4.8); Lymphocytes % (A) 15 %; MCH 30.8 pg (25.0-35.0); MCHC 33.8 g/dL (31.0-37.0); MCV 91.1 fL (80.0-100.0); Mean Platelet Volume 7.4; Monocytes # (A) 0.6 k/uL (0-1.0); Monocytes % (A) 7 %; Neutrophils # (A) 6.4 k/uL (1.3-7.7); Neutrophils % (A) 74 %; Platelet Count 250 k/uL (150-450); RBC 4.65 m/uL (4.30-5.90); RDW 13.1 % (11.5-15.5); WBC 8.6 k/uL (3.8-10.6)
--- NOTE | 2022-07-25 18:50 | XR ---
EXAMINATION TYPE: XR chest 2V DATE OF EXAM: 07/25/2022 6:43 PM COMPARISON: Chest radiographs from 08/28/2019 TECHNIQUE: XR chest 2V Frontal and lateral views of the chest. CLINICAL INDICATION:Male, 72 years old with history of Chest Pain; FINDINGS: Lungs/Pleura: Low lung volumes are present. There is no evidence of pleural effusion, focal consolida tion, or pneumothorax. Pulmonary vascularity: Unremarkable. Heart/mediastinum: Cardiomediastinal silhouette is unremarkable. Musculoskeletal: No acute osseous pathology. IMPRESSION: No acute cardiopulmonary disease/process. No significant change from prior.
[2022-07-25] MEDS ORDERED: ASPIRIN 81 MG PO STA (19:03)
[2022-07-25] MEDS ORDERED: NITROGLYCERIN OINT 1 INCH/GM PACKET TOPICAL STA (19:03)
--- NOTE | 2022-07-25 19:18 | ED ---
General Adult HPI - General Chief complaint: Chest Pain Stated complaint: angina sent by DR Fernando Seen by Provider: 07/25/22 18:50 Source: patient, family, RN notes reviewed, old records reviewed Mode of arrival: ambulatory Limitations: no limitations - History of Present Illness Initial comments: This is a 72-year-old male with a past medical history significant for diabetes and high cholesterol. Patient has been experiencing episodes of near-syncope sweating and feeling very weak. Patient states he also gets chest heaviness when this occurs. Patient states occurred [place] again [place] stop at the fourth hole and come home once he got home rest he took some aspirin after about an hour it resolved. Patient states that about a year ago he was told he could get a cardiac catheterization but he opted not to and now he thinks he probably should do it. Patient has no chest heaviness at the moment - Related Data Home Medications Medication Instructions Recorded Confirmed Aspirin EC [Ecotrin Low Dose] 81 mg PO HS 08/27/19 08/27/19 Atorvastatin [Lipitor] 40 mg PO DAILY 08/27/19 08/27/19 Budesonide/Formoterol Fumarate 2 puff INHALATION RT-BID 08/27/19 08/27/19 [Symbicort 80-4.5 Mcg Inhaler] Cholecalciferol (Vitamin D3) 50 mcg PO HS 08/27/19 08/27/19 [Vitamin D3] metFORMIN HCL [Glucophage] 1,000 mg PO HS 08/27/19 08/27/19 metFORMIN HCL [Glucophage] 500 mg PO DAILY 08/27/19 08/27/19 Previous Rx's Medication Instructions Recorded Glimepiride [Amaryl] 2 mg PO BID #0 08/29/19 amLODIPine [Norvasc] 5 mg PO DAILY #30 tab 08/29/19 dexAMETHasone ORAL [Hexadrol] 4 mg PO DAILY #10 tab 08/29/19 lisinopriL 20 mg PO DAILY #0 08/29/19 Allergies Allergy/AdvReac Type Severity Reaction Status Date / Time No Known Allergies Allergy Verified 08/27/19 15:40 Review of Systems ROS Statement: Those systems with pertinent positive or pertinent negative responses have been documented in the HPI. ROS Other: All systems not noted in ROS Statement are negative. Past Medical History Past Medical History: Asthma, Diabetes Mellitus, Hyperlipidemia, Hypertension History of Any Multi-Drug Resistant Organisms: None Reported Past Surgical History: Orthopedic Surgery Additional Past Surgical History / Comment(s): tonja knee surgery. Past Psychological History: No Psychological Hx Reported Smoking Status: Former smoker Past Alcohol Use History: None Reported Past Drug Use History: None Reported - Past Family History Father Family Medical History: Diabetes Mellitus General Exam - General Exam Comments Initial Comments: GENERAL: Patient is well-developed and well-nourished. Patient is nontoxic and well- hydrated and is in no acute distress. ENT: Neck is soft and supple. No significant lymphadenopathy is noted. Oropharynx is clear. Moist mucous membranes. Neck has full range of motion without eliciting any pain. EYES: The sclera were anicteric and conjunctiva were pink and moist. Extraocular movements were intact and pupils were equal round and reactive to light. Eyelids were unremarkable. PULMONARY: Unlabored respirations. Good breath sounds bilaterally. No audible rales rh onchi or wheezing was noted. CARDIOVASCULAR: There is a regular rate and rhythm without any murmurs gallops or rubs. ABDOMEN: Soft and nontender with normal bowel sounds. SKIN: Skin is clear with no lesions or rashes and otherwise unremarkable. NEUROLOGIC: Patient is alert and oriented x3. Cranial nerves II through XII are grossly intact. Motor and sensory are also intact. Normal speech, volume and content. Symmetrical smile. MUSCULOSKELETAL: Normal extremities with adequate strength and full range of motion. No lower extremity swelling or edema. No calf tenderness. LYMPHATICS: No significant lymphadenopathy is noted PSYCHIATRIC: Normal psychiatric evaluation. Limitations: no limitations Course Vital Signs 07/25/22 07/25/22 17:59 19:37 Temperature 98 F Pulse Rate 77 71 Respiratory 16 18 Rate Blood Pressure 157/88 146/75 O2 Sat by Pulse 99 96 Oximetry Medical Decision Making - Medical Decision Making EKG is interpreted by myself EKG shows a sinus rhythm at 70 bpm MO interval is 266 QRS is 106 QT interval 372 QTC is 393. Patient's EKG shows no ST segment elevation or depression Was pt. sent in by a medical professional or institution (, PA, INTAKE WORKER, urgent care, hospital, or retirement...) When possible be specific @ -Patient was sent in by Dr. Barbour Did you speak to anyone other than the patient for history (EMS, parent, family, police, friend...)? What history was obtained from this source @ -I spoke with Dr. Barbour about this patient's history prior to his arrival Did you review nursing and triage notes (agree or disagree)? Why? @ -I reviewed and agree with nursing and triage notes Were old charts reviewed (outside hosp., previous admission, EMS record, old EKG, old radiological studies, urgent care reports/EKG's, retirement records)? Report findings @ -I reviewed prior charting prior lab work from prior EKGs in this patient Differential Diagnosis (chest pain, altered mental status, abdominal pain women, abdominal pain men, vaginal bleeding, weakness, fever, dyspnea, syncope, headache, dizziness, GI bleed, back pain, seizure, CVA, palpatations, mental health, musculoskeletal)? @ -Differential Chest Pain: Stable Angina, Unstable Angina, STEMI, NSTEMI Aortic Dissection, Pneumothorax, Musculoskeletal, Esophageal Spasm GERD, Cholecystitis, Pancreatitis, Zoster, this is not meant to be an all-inclusive list. EKG interpreted by me (3pts min.). @ -As above X-rays interpreted by me (1pt min.). @ -chest x-ray showed no acute abnormality CT interpreted by me (1pt min.). @ -None done U/S interpreted by me (1pt. min.). @ -None done What testing was considered but not performed or refused? (CT, X-rays, U/S, la bs)? Why? @ -None What meds were considered but not given or refused? Why? @ -None Did you discuss the management of the patient with other professionals (professionals i.e. , PA, INTAKE WORKER, lab, RT, psych nurse, social media marketing analyst, copy holder, teacher, financial aids officer, case monitor)? Give summary @ -I discussed the case with Dr. Cueva he agreed to admit the patient admitted the patient I wrote admitting orders Was smoking cessation discussed for >3mins.? @ -No Was critical care preformed (if so, how long)? @ -No Were there social determinants of health that impacted care today? How? (Homelessness, low income, unemployed, alcoholism, drug addiction, transportation, low edu. Level, literacy, decrease access to med. care, snf, rehab)? @ -No Was there de-escalation of care discussed even if they declined (Discuss DNR or withdrawal of care, Hospice)? DNR status @ -No What co-morbidities impacted this encounter? (DM, HTN, Smoking, COPD, CAD, Cancer, CVA, ARF, Chemo, Hep., AIDS, mental health diagnosis, sleep apnea, morbid obesity)? @ -None Was patient admitted / discharged? Hospital course, mention meds given and route, prescriptions, significant lab abnormalities, going to OR and other pertinent info. @ -Patient will be admitted for unstable angina cardiology be consulted all initial labs are normal. Chest x-ray is normal. Patient was given aspirin and Nitropaste he remained chest pain-free Undiagnosed new problem with uncertain prognosis? @ -No Drug Therapy requiring intensive monitoring for toxicity (Heparin, Nitro, Insulin, Cardizem)? @ -No Were any procedures done? @ -No Diagnosis/symptom? @ -Unstable angina Acute, or Chronic, or Acute on Chronic? @ -Acute Uncomplicated (without systemic symptoms) or Complicated (systemic symptoms)? @ -complicated Side effects of treatment? @ -No Exacerbation, Progression, or Severe Exacerbation? @ -No Poses a threat to life or bodily function? How? (Chest pain, USA, SC, pneumonia, PE, COPD, DKA, ARF, appy, cholecystitis, CVA, Diverticulitis, Homicidal, Suicidal, threat to staff... and all critical care pts) @ -Yes this could lead to an SC and eventually end organ dysfunction - Lab Data Result diagrams: 07/25/22 18:15 07/25/22 18:15 Lab Results 07/25/22 07/25/22 07/25/22 Range/Units 18:15 18:15 18:15 WBC 8.6 (3.8-10.6) k/uL RBC 4.65 (4.30-5.90) m/uL Hgb 14.3 (13.0-17.5) gm/dL Hct 42.4 (39.0-53.0) % MCV 91.1 (80.0-100.0) fL MCH 30.8 (25.0-35.0) pg MCHC 33.8 (31.0-37.0) g/dL RDW 13.1 (11.5-15.5) % Plt Count 250 (150-450) k/uL MPV 7.4 Neutrophils % 74 % Lymphocytes % 15 % Monocytes % 7 % Eosinophils % 2 % Basophils % 0 % Neutrophils # 6.4 (1.3-7.7) k/uL Lymphocytes # 1.3 (1.0-4.8) k/uL Monocytes # 0.6 (0-1.0) k/uL Eosinophils # 0.2 (0-0.7) k/uL Basophils # 0.0 (0-0.2) k/uL PT 11.1 (9.0-12.0) sec INR 1.1 (<1.2) APTT 23.4 (22.0-30.0) sec Sodium 137 (137-145) mmol/L Potassium 4.9 (3.5-5.1) mmol/L Chloride 104 (98-107) mmol/L Carbon Dioxide 20 L (22-30) mmol/L Anion Gap 13 mmol/L BUN 34 H (9-20) mg/dL Creatinine 1.75 H (0.66-1.25) mg/dL Est GFR (CKD-EPI)AfAm 44 (>60 ml/min/1.73 sqM) Est GFR (CKD-EPI)NonAf 38 (>60 ml/min/1.73 sqM) Glucose 105 H (74-99) mg/dL Calcium 8.8 (8.4-10.2) mg/dL Magnesium 1.8 (1.6-2.3) mg/dL Total Bilirubin 0.7 (0.2-1.3) mg/dL AST 18 (17-59) U/L ALT 9 (4-49) U/L Alkaline Phosphatase 77 (38-126) U/L Troponin I (0.000-0.034) ng/mL Total Protein 7.1 (6.3-8.2) g/dL Albumin 4.3 (3.5-5.0) g/dL 07/25/22 Range/Units 18:15 WBC (3.8-10.6) k/uL RBC (4.30-5.90) m/uL Hgb (13.0-17.5) gm/dL Hct (39.0-53.0) % MCV (80.0-100.0) fL MCH (25.0-35.0) pg MCHC (31.0-37.0) g/dL RDW (11.5-15.5) % Plt Count (150-450) k/uL MPV Neutrophils % % Lymphocytes % % Monocytes % % Eosinophils % % Basophils % % Neutrophils # (1.3-7.7) k/uL Lymphocytes # (1.0-4.8) k/uL Monocytes # (0-1.0) k/uL Eosinophils # (0-0.7) k/uL Basophils # (0-0.2) k/uL PT (9.0-12.0) sec INR (<1.2) APTT (22.0-30.0) sec Sodium (137-145) mmol/L Potassium (3.5-5.1) mmol/L Chloride (98-107) mmol/L Carbon Dioxide (22-30) mmol/L Anion Gap mmol/L BUN (9-20) mg/dL Creatinine (0.66-1.25) mg/dL Est GFR (CKD-EPI)AfAm (>60 ml/min/1.73 sqM) Est GFR (CKD-EPI)NonAf (>60 ml/min/1.73 sqM) Glucose (74-99) mg/dL Calcium (8.4-10.2) mg/dL Magnesium (1.6-2.3) mg/dL Total Bilirubin (0.2-1.3) mg/dL AST (17-59) U/L ALT (4-49) U/L Alkaline Phosphatase (38-126) U/L Troponin I <0.012 (0.000-0.034) ng/mL Total Protein (6.3-8.2) g/dL Albumin (3.5-5.0) g/dL Disposition Clinical Impression: Unstable angina pectoris Disposition: ADMITTED IP TO THIS [facility] Referrals: Evelia Cueva DO [REFERRING] - 1-2 days Time of Disposition: 20:29
[2022-07-25 19:29] LABS: ALT 9 U/L (4-49); AST 18 U/L (17-59); African American GFR (CKD) 44 (>60 ml/min/1.73 sqM); Albumin 4.3 g/dL (3.5-5.0); Alkaline Phosphatase 77 U/L (38-126); Anion Gap 13 mmol/L; Blood Urea Nitrogen 34 mg/dL (9-20); Calcium 8.8 mg/dL (8.4-10.2); Carbon Dioxide 20 mmol/L (22-30); Chloride 104 mmol/L (98-107); Glucose 105 mg/dL (74-99); Magnesium 1.8 mg/dL (1.6-2.3); Non-African American GFR(CKD) 38 (>60 ml/min/1.73 sqM); Potassium 4.9 mmol/L (3.5-5.1); Sodium 137 mmol/L (137-145); Total Bilirubin 0.7 mg/dL (0.2-1.3); Total Protein 7.1 g/dL (6.3-8.2)
[2022-07-25] MEDS ORDERED: NITROGLYCERIN SL TABS 0.4 MG TAB SUBLINGUAL PRN (20:29)
[2022-07-26] MEDS: NITROGLYCERIN OINT 1 INCH/GM PACKET TOPICAL SCH ×2 (01:14→06:46)
[2022-07-26 06:26] LABS: Glucose,Whole Blood 141 mg/dL (70-110)
[2022-07-26] MEDS ORDERED: DEXTROSE 50% SYRINGE 50 ML IVP PRN ×2 (08:23)
[2022-07-26] MEDS ORDERED: ASPIRIN 325 MG TAB PO SCH (09:00)
[2022-07-26] MEDS: METOPROLOL SUCCINATE (ER) 25 MG TAB.ER.24H PO SCH (10:36)
[2022-07-26] MEDS: CARBIDOPA-LEVODOPA 25-100 MG 1 EACH TAB PO SCH ×3 (10:36→22:49)
[2022-07-26] MEDS: HEPARIN SODIUM,PORCINE/PF 5,000 UNIT/0.5 ML SYRINGE SQ SCH ×3 (10:36→22:49)
[2022-07-26] MEDS: ATORVASTATIN 40 MG TAB PO SCH (10:37)
[2022-07-26] MEDS: amLODIPine 5 MG TAB PO SCH (10:37)
[2022-07-26] MEDS: LISINOPRIL-HCTZ 20-12.5 MG 1 EACH TAB PO SCH (10:37)
[2022-07-26 11:41] LABS: Chol/HDL Ratio 3.19 Ratio; LDL Cholesterol,Calculated 51.9 mg/dL (0.0-131.0)
[2022-07-26 11:51] LABS: Glucose,Whole Blood 196 mg/dL (70-110)
[2022-07-26] MEDS: INSULIN ASPART (NovoLOG) 100 UNIT/ML VIAL SQ SCH ×3 (12:44→20:11)
--- NOTE | 2022-07-26 12:52 | CONS ---
CONSULTATION HISTORY OF PRESENT ILLNESS: Rashad Virgen is a 72-year-old gentleman with a known history of diabetes with chronic kidney disease, hypertension, hyperlipidemia, atypical chest pain with a previous unremarkable stress test about a year and a half ago. He also has Parkinson disease, which is progressively getting worse. He is here because while he was playing golf yesterday on the 4th hole, his legs felt very weak. He could not walk anymore. He sat in the cart, and then he felt that his heart was racing, had a sensation of chest tightness, and came into the hospital. He had these symptoms before also. He sees a casino duty manager at [facility], has had a stress test in the last 18 months, was told that it was marginally abnormal. However, he also has chronic kidney disease and was advised to drink more water, and at this time, he is asymptomatic. His symptoms were mostly feeling weak, tired, no strength in the legs, and muscles felt weak and also had some sweating and some brief chest tightness. He was advised cardiac catheterization, but then, he and his casino duty manager discussed about this, and a year ago because of chronic kidney disease, they decided not to proceed with cardiac catheterization, and stress test did not reveal significant abnormality. This information is from the patient, not verified. PAST MEDICAL HISTORY: 1. Type 2 diabetes with CKD. 2. Hypertension. 3. Hyperlipidemia. 4. Parkinsonism. MEDICATIONS AT HOME: Include: 1. Glimepiride. 2. Amlodipine. 3. Dexamethasone. 4. Lisinopril. 5. Atorvastatin. 6. Vitamin supplements. 7. Aspirin 81 mg daily. 8. Metformin. LABORATORY DATA: Suggest that all his troponins are normal. EKG revealed sinus mechanism without any acute changes. LDL cholesterol is 51. PHYSICAL EXAMINATION: VITAL SIGNS: Blood pressure is 160/78. Pulse rate 68 per minute, regular. HEENT: Unremarkable. Fundus was not examined by me. NECK: Supple. No JVD. I do not hear a carotid bruit. HEART: Reveals S1 and S2 heard normally. Short systolic murmur at the left lower sternal border. LUNGS: Clear. ABDOMEN: Soft and nontender. EXTREMITIES: Lower extremities reveal diminished pulses. CENTRAL NERVOUS SYSTEM: Grossly, no focal deficits, but the patient has tremor. IMPRESSION: 1. Chest pain syndrome, cannot exclude coronary artery disease. 2. Clinical presentation does not suggest that of unstable angina. 3. Parkinsonism with muscle weakness. 4. Type 2 diabetes with chronic kidney disease. 5. Hypertension. 6. History of unremarkable stress test about 1 year to 14 months ago. RECOMMENDATIONS: I am recommending subcutaneous heparin and small dose of beta-kirk. Check echocardiogram, hydrate him cautiously, and if he is stable, discharge him, and I will see him in the office and consider cardiac catheterization if the repeat stress test reveals any new abnormality. I discussed my thoughts in detail with the patient. Thank you very much for the consult. ATIYA / USHA: [id number] /
--- NOTE | 2022-07-26 14:25 | P.HPIM ---
History of Present Illness H&P Date: 07/26/22 Chief Complaint: Chest tightness History of Physical and Discharge Summary This is a pleasant 72-year-old gentleman with past medical history of asthma, chest pain/angina, diabetes mellitus, chronic kidney disease ,hypertension, hyperlipidemia, Parkinson's disease, Covid 2020,, follows with stock handler Dr. Juarez by [place], presented to the ER with recurrent nonradiating fluctuating chest pressure. States it has been occurring for over the last 2 years, cardiac catheterization was recommended approximately one year ago but he chose to attempt conservative treatment with medications. Reports he was on the golf course on Saturday became weak, dizzy, diaphoretic with midsternal chest pressure. Stopped playing at the [facility], returned home, took a couple baby aspirins and it resolved within the hour. EKG reported sinus . Troponins negative 3. Electrolytes within normal limits , BUN 34, creatinine 1.75. Triglycerides 135, cholesterol 1:15, LDL 51.9, HDL 36. Chest x-ray reporting no acute cardiopulmonary disease process .Evaluated by cardiology and echo recommended. Review of Systems ROS Statement: Those systems with pertinent positive or pertinent negative responses have been documented in the HPI. ROS Other: All systems not noted in ROS Statement are negative. Past Medical History Past Medical History: Asthma, Chest Pain / Angina, Diabetes Mellitus, Hyperlipidemia, Hypertension, Musculoskeletal Disorder Additional Past Medical History / Comment(s): Parkinsons-takes sinemet, COVID 2020 here x3 days, chest pain on and off x2 years increased within the past week. History of Any Multi-Drug Resistant Organisms: None Reported Past Surgical History: Orthopedic Surgery Additional Past Surgical History / Comment(s): bilateral knee surgery Past Anesthesia/Blood Transfusion Reactions: No Reported Reaction Past Psychological History: No Psychological Hx Reported Smoking Status: Former smoker Past Alcohol Use History: None Reported Past Drug Use History: None Reported - Past Family History Father Family Medical History: Diabetes Mellitus Medications and Allergies Home Medications Medication Instructions Recorded Confirmed Type Aspirin EC [Ecotrin Low Dose] 81 mg PO HS 08/27/19 07/25/22 History metFORMIN HCL [Glucophage] 500 mg PO DAILY 08/27/19 07/25/22 History Albuterol Sulfate [Ventolin HFA] 2 puff INHALATION RT-Q4H PRN 07/25/22 07/25/22 History Atorvastatin [Lipitor] 40 mg PO DAILY 07/25/22 07/25/22 History Carbidopa-Levodopa 25-100 mg 2 tab PO TID 07/25/22 07/25/22 History [Sinemet 25-100 mg] Fluticasone/Umeclidin/Vilanter 1 puff INHALATION RT-DAILY 07/25/22 07/25/22 History [Trelegy Ellipta 100-62.5-25] Glimepiride [Amaryl] 2 mg PO DAILY 07/25/22 07/25/22 History Lisinopril-Hctz 20-12.5 mg 1 tab PO DAILY 07/25/22 07/25/22 History [Zestoretic 20-12.5] Tamsulosin HCl [Flomax] 0.4 mg PO HS 07/25/22 07/25/22 History amLODIPine [Norvasc] 5 mg PO DAILY 07/25/22 07/25/22 History Metoprolol Succinate (ER) [Toprol 25 mg PO DAILY #30 tab 07/26/22 Rx XL] Allergies Allergy/AdvReac Type Severity Reaction Status Date / Time No Known Allergies Allergy Verified 07/25/22 21:02 Physical Exam Vitals: Vital Signs Temp Pulse Pulse Resp BP BP Pulse Ox 07/26/22 12:00 67 18 136/75 95 07/26/22 08:00 98.3 F 68 18 160/78 96 07/26/22 07:59 92 L 07/26/22 04:00 98.2 F 66 18 126/74 93 L 07/26/22 02:00 67 16 07/26/22 01:00 98.0 F 67 16 117/69 96 07/25/22 22:20 98.2 F 63 18 166/80 96 07/25/22 21:30 65 18 155/94 95 07/25/22 21:00 66 13 155/94 94 L 07/25/22 20:50 62 16 155/94 96 07/25/22 20:30 68 21 146/75 96 07/25/22 20:00 65 20 146/75 98 07/25/22 19:37 71 18 146/75 96 07/25/22 18:51 20 07/25/22 17:59 98 F 77 16 157/88 99 FiO2 07/26/22 12:00 07/26/22 08:00 07/26/22 07:59 21 07/26/22 04:00 07/26/22 02:00 07/26/22 01:00 07/25/22 22:20 07/25/22 21:30 07/25/22 21:00 07/25/22 20:50 07/25/22 20:30 07/25/22 20:00 07/25/22 19:37 07/25/22 18:51 07/25/22 17:59 Intake and Output 07/25/22 07/26/22 07/26/22 22:59 06:59 14:59 Intake Total 180 Balance 180 Intake: Oral 180 Other: Voiding Method Toilet # Voids 1 1 Weight 131.088 kg PHYSICAL EXAM: VITAL SIGNS: As above GENERAL: Sitting up in bed, no acute distress HEENT: Atraumatic, Conjunctivae normal. eyes normal. NECK: No JVD. No thyroid enlargement. No LNs CARDIOVASCULAR: S1, S2 regular. Systolic murmur. RESPIRATION: Breath sounds diminished in the bases. No rhonchi or crackles. ABDOMEN: Soft, nontender . No guarding. no masses palpable. Bowel sounds heard. LEGS: No edema. no swelling PSYCHIATRY: Alert and oriented X3, mood and affect normal. NERVOUS SYSTEM: Cranial N 2-12 grossly normal. Moves all 4 limbs. No focal deficits. Strength and sensation grossly intact.. Skin: Warm and dry, no rash Results CBC & Chem 7: 07/25/22 18:15 07/25/22 18:15 Labs: Abnormal Lab Results - Last 24 Hours (Table) 07/25/22 07/26/22 07/26/22 Range/Units 18:15 06:22 06:49 Carbon Dioxide 20 L (22-30) mmol/L BUN 34 H (9-20) mg/dL Creatinine 1.75 H (0.66-1.25) mg/dL Glucose 105 H (74-99) mg/dL POC Glucose (mg/dL) 141 H (70-110) mg/dL HDL Cholesterol 36.10 L (40.00-60.00) mg/dL 07/26/22 Range/Units 11:50 Carbon Dioxide (22-30) mmol/L BUN (9-20) mg/dL Creatinine (0.66-1.25) mg/dL Glucose (74-99) mg/dL POC Glucose (mg/dL) 196 H (70-110) mg/dL HDL Cholesterol (40.00-60.00) mg/dL Thrombosis Risk Factor Assmnt - Choose All That Apply Any of the Below Risk Factors Present?: Yes Each Factor Represents 1 point: Obesity (BMI >25) Other Risk Factors: Yes Each Risk Factor Represents 2 Points: Age 61-74 years Other congenital or acquired thrombophilia - If yes, enter type in comment: No Thrombosis Risk Factor Assessment Total Risk Factor Score: 3 Thrombosis Risk Factor Assessment Level: Moderate Risk Assessment and Plan Assessment: Chest tightness, in a patient with family history of CAD, brother recently underwent a CABG Parkinson's disease Diabetes mellitus type 2 Acute on Chronic kidney disease, stage III Hypertension Plan: Continue on current medication regime ,monitoring and symptomatic treatment. Evaluated by cardiology, recommending small dose of beta kirk,, echo. Gentle IV fluid hydration. Patient will be discharged home today pending echo results, final DC recommendations and clearance per cardiology. Discharge Medication List Aspirin EC [Ecotrin Low Dose] 81 mg PO HS 08/27/19 [History] metFORMIN HCL [Glucophage] 500 mg PO DAILY 08/27/19 [History] Albuterol Sulfate [Ventolin HFA] 2 puff INHALATION RT-Q4H PRN 07/25/22 [History] Atorvastatin [Lipitor] 40 mg PO DAILY 07/25/22 [History] Carbidopa-Levodopa 25-100 mg [Sinemet 25-100 mg] 2 tab PO TID 07/25/22 [History] Fluticasone/Umeclidin/Vilanter [Trelegy Ellipta 100-62.5-25] 1 puff INHALATION RT-DAILY 07/25/22 [History] Glimepiride [Amaryl] 2 mg PO DAILY 07/25/22 [History] Lisinopril-Hctz 20-12.5 mg [Zestoretic 20-12.5] 1 tab PO DAILY 07/25/22 [Histo ry] Tamsulosin HCl [Flomax] 0.4 mg PO HS 07/25/22 [History] amLODIPine [Norvasc] 5 mg PO DAILY 07/25/22 [History] Metoprolol Succinate (ER) [Toprol XL] 25 mg PO DAILY #30 tab 07/26/22 [Rx] The impression and plan of care has been dictated as directed. : I performed a history and examination of this patient, discussed the same with the dictator. I agree with the dictator's note ,documented as a scribe. Any additional findings or plans will be noted.
[2022-07-26 16:51] LABS: Glucose,Whole Blood 84 mg/dL (70-110)
[2022-07-26 20:03] VITALS: RESP 16
[2022-07-26] MEDS: SODIUM CHLORIDE 0.9% 1,000 ML IV SCH ×2 (20:11→22:47)
[2022-07-26 20:12] LABS: Glucose,Whole Blood 116 mg/dL (70-110)
[2022-07-27 06:11] LABS: Glucose,Whole Blood 123 mg/dL (70-110)
--- NOTE | 2022-07-27 07:17 | CA ---
Transthoracic Echo Report Name: Rashad Virgen Age: 72 Gender: M : 1950 Exam Date: 07/26/2022 11:28 Exam Location: [facility] Ht (in): 73 Wt (lb): 289 Ordering Physician: Traci Ceron Attending/Referring Phys: [id number], Jie Primer Supervisor Eliza Rutledge [facility] Procedure CPT: Indications: LV function Cardiac Hx: Technical Quality: Technically difficult study Contrast 1: Lumason Total Dose (mL): 5 Contrast 2: Total Dose (mL): MEASUREMENTS (Male / Female) Normal Values 2D ECHO LV Diastolic Diameter PLAX 4.9 cm 4.2 - 5.9 / 3.9 - 5.3 cm LV Systolic Diameter PLAX 3.1 cm IVS Diastolic Thickness 0.8 cm 0.6 - 1.0 / 0.6 - 0.9 cm LVPW Diastolic Thickness 1.1 cm 0.6 - 1.0 / 0.6 - 0.9 cm LV Relative Wall Thickness 0.4 RV Internal Dim ED PLAX 2.9 cm M-MODE Aortic Root Diameter MM 3.2 cm LA Systolic Diameter MM 4.1 cm LA Ao Ratio MM 1.3 AV Cusp Separation MM 2.3 cm DOPPLER AV Peak Velocity 136.8 cm/s AV Peak Gradient 7.5 mmHg AV Mean Velocity 107.4 cm/s AV Mean Gradient 4.9 mmHg AV Velocity Time Integral 28.2 cm LVOT Peak Velocity 100.5 cm/s LVOT Peak Gradient 4.0 mmHg LVOT Velocity Time Integral 21.5 cm Mitral E Point Velocity 74.8 cm/s Mitral A Point Velocity 92.4 cm/s Mitral E to A Ratio 0.8 MV Deceleration Time 267.9 ms LV E' Lateral Velocity 10.9 cm/s Mitral E to LV E' Lateral Ratio 6.9 LV E' Septal Velocity 5.7 cm/s Mitral E to LV E' Septal Ratio 13.2 Right Atrial Pressure 3.0 mmHg FINDINGS Left Ventricle Normal left ventricular size, wall thickness, systolic function with no obvious regional wall motion abnormalities. The ejection fraction is visually estimated at 55-60%. Right Ventricle Moderate right ventricular dilatation. Right Atrium Mild right atrial dilatation. Left Atrium The left atrium is normal in size. Mitral Valve Structurally normal mitral valve without significant stenosis or prolapse. There is no mitral regurgitation. Aortic Valve Structurally normal aortic valve without significant sclerosis or stenosis. There is no aortic regurgitation. Tricuspid Valve Structurally normal tricuspid valve without significant stenosis. No tricuspid regurgitation. Pulmonic Valve Structurally normal pulmonic valve without significant stenosis. There is no pulmonic regurgitation. Pericardium Normal pericardium without effusion. Aorta Normal aortic root dimension. CONCLUSIONS 1. Normal left ventricular size and systolic function 2. No significant valvular abnormalities. Previewed by: Dr. Shaq Winn MD (Electronically Signed) Final Date: 27 July 2022 07:16
[2022-07-27 08:03] LABS: African American GFR (CKD) 49 (>60 ml/min/1.73 sqM); Anion Gap 9 mmol/L; Blood Urea Nitrogen 35 mg/dL (9-20); Calcium 8.6 mg/dL (8.4-10.2); Carbon Dioxide 25 mmol/L (22-30); Chloride 104 mmol/L (98-107); Glucose 106 mg/dL (74-99); Non-African American GFR(CKD) 42 (>60 ml/min/1.73 sqM); Potassium 4.8 mmol/L (3.5-5.1); Sodium 138 mmol/L (137-145)
[2022-07-27] MEDS ORDERED: ASPIRIN 81 MG PO SCH (09:00)
[2022-07-27] MEDS: INSULIN ASPART (NovoLOG) 100 UNIT/ML VIAL SQ SCH ×2 (09:30→11:54)
[2022-07-27] MEDS: ATORVASTATIN 40 MG TAB PO SCH (09:37)
[2022-07-27] MEDS: METOPROLOL SUCCINATE (ER) 25 MG TAB.ER.24H PO SCH (09:37)
[2022-07-27] MEDS: CARBIDOPA-LEVODOPA 25-100 MG 1 EACH TAB PO SCH (09:37)
[2022-07-27] MEDS: amLODIPine 5 MG TAB PO SCH (09:37)
[2022-07-27] MEDS: LISINOPRIL-HCTZ 20-12.5 MG 1 EACH TAB PO SCH (09:37)
[2022-07-27] MEDS: HEPARIN SODIUM,PORCINE/PF 5,000 UNIT/0.5 ML SYRINGE SQ SCH (09:37)
[2022-07-27 11:24] VITALS: TEMP 97.6
[2022-07-27 11:37] LABS: Glucose,Whole Blood 127 mg/dL (70-110)
[2022-07-27 12:18] VITALS: BP 153/84; PULSE 54
--- NOTE | 2022-07-27 13:16 | P.PN ---
Subjective HISTORY OF PRESENT ILLNESS: Patient examined this morning at the bedside. Patient denies having any further episodes of chest pain or pressure. He denies shortness of breath. Vital signs are stable. Echocardiogram completed revealing ejection fraction 50-55% with no wall motion abnormalities. PHYSICAL EXAM: VITAL SIGNS: Reviewed. GENERAL: Well-developed in no acute distress. NECK: Supple. No JVD or thyromegaly LUNGS: Respirations even and unlabored. Lungs essentially clear to auscultation bilaterally. HEART: Regular rate and rhythm. S1 and S2 heard. EXTREMITIES: Normal range of motion. No clubbing or cyanosis. Peripheral pulses intact. No lower extremity edema ASSESSMENT: Chest pain, troponins negative 3, ACS rule out Hypertension and hyperlipidemia Diabetes mellitus Acute kidney injury, baseline unknown Parkinson's disease PLAN: Continue current cardiac medications Patient is stable for discharge home today from a cardiac standpoint He is to follow up outpatient with his primary molder helper Nurse practitioner note has been reviewed by physician. Signing provider agrees with the documented findings, assessment, and plan of care. Objective - Vital Signs Vital signs: Vital Signs Temp 97.6 F 07/27/22 08:00 Pulse 54 L 07/27/22 12:00 Resp 16 07/27/22 08:00 BP 153/84 07/27/22 12:00 Pulse Ox 95 07/27/22 12:00 FiO2 21 07/26/22 07:59 Intake & Output 07/26/22 07/27/22 07/27/22 18:59 06:59 18:59 Intake Total 360 240 Balance 360 240 Intake: Oral 360 240 Other: Voiding Method Toilet Toilet # Voids 2 1 - Labs CBC & Chem 7: 07/25/22 18:15 07/27/22 07:00 Labs: Abnormal Lab Results - Last 24 Hours (Table) 07/26/22 07/27/22 07/27/22 Range/Units 20:11 06:10 07:00 BUN (9-20) mg/dL Creatinine (0.66-1.25) mg/dL Glucose (74-99) mg/dL POC Glucose (mg/dL) 116 H 123 H (70-110) mg/dL Hemoglobin A1c 6.7 H (<=6.0) % 07/27/22 07/27/22 Range/Units 07:00 11:35 BUN 35 H (9-20) mg/dL Creatinine 1.62 H (0.66-1.25) mg/dL Glucose 106 H (74-99) mg/dL POC Glucose (mg/dL) 127 H (70-110) mg/dL Hemoglobin A1c (<=6.0) %
== END 2022-07-27 15:18 | disposition home or self-care (01) ==
LOC: EC 17:54 → INTOOBSV 20:29 → 3SCARD 20:29
PROVIDERS: ADMIT Family Medicine; ATTEND Family Medicine
DX: R07.89 Other chest pain (principal); N17.9 Acute kidney failure, unspecified; I12.9 Hypertensive chronic kidney disease with stage 1 through stage 4 chronic kidney disease, or unspecified chronic kidney disease; N18.30 Chronic kidney disease, stage 3 unspecified; E11.22 Type 2 diabetes mellitus with diabetic chronic kidney disease; E78.00 Pure hypercholesterolemia, unspecified; J45.909 Unspecified asthma, uncomplicated; G20 Parkinson's disease; M62.81 Muscle weakness (generalized); R55 Syncope and collapse; R61 Generalized hyperhidrosis; R42 Dizziness and giddiness; E66.9 Obesity, unspecified; Z68.38 Body mass index [BMI] 38.0-38.9, adult; Z79.82 Long term (current) use of aspirin; Z79.51 Long term (current) use of inhaled steroids; Z79.84 Long term (current) use of oral hypoglycemic drugs; Z79.899 Other long term (current) drug therapy; Z79.52 Long term (current) use of systemic steroids; Z87.891 Personal history of nicotine dependence; Z86.16 Personal history of COVID-19; Z98.890 Other specified postprocedural states; Z83.3 Family history of diabetes mellitus; Z82.49 Family history of ischemic heart disease and other diseases of the circulatory system
CPT/HCPCS: 96372 ×2; 99285; 36415; 94760; 93005; 93306; 80061; 80053; 80048; 83735; 84484; 85025; 85610; 85730; 83036; 71046; G0378 ×2; Q9950; J1644 ×2

== ENCOUNTER → 2023-07-18 | Outpatient (CLI) | payer MEDICARE ==
[2023-07-18 13:03] LABS: African American GFR (CKD) 56 (>60 ml/min/1.73 sqM); Blood Urea Nitrogen 29 mg/dL (9-20); Non-African American GFR(CKD) 48 (>60 ml/min/1.73 sqM)
--- NOTE | 2023-07-18 13:48 | CT ---
EXAMINATION TYPE: CT soft tissue neck w con DATE OF EXAM: 07/18/2023 1:26 PM COMPARISON: None HISTORY: tonsil CA CT DLP: 752.3 mGycm Automated exposure control for dose reduction was used. CONTRAST: CT scan of the neck is performed following with IV Contrast, patient injected with 100 mL of Isovue 3 00. Axial images are obtained, coronal and sagittal reformatted images are reviewed. FINDINGS: FINDINGS: There are no supraclavicular lymph nodes. There is no thyroid mass or gross enlargement. The larynx including the cricoid, arytenoid and thyroid cartilages as well as the vocal cords are nor mal and symmetric. There is an enhancing soft tissue mass in the left tongue base extending into the left tonsillar naina on. It measures 2.6 x 1.5 cm in size. The epiglottis and aryepiglottic folds are normal. The vallecul a and piriform sinuses are symmetric. The submandibular glands are markedly atrophic. The parotid glands are normal without focal mass.. Th ere are multiple enlarged left jugular chain lymph nodes the largest of which is 19 x 12 mm. The great vessels of the neck are normal. Mild chronic inflammatory changes in the left maxillary sinus.. 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
== END | disposition home or self-care (01) ==
LOC: RADCTMAIN 12:06
PROVIDERS: ATTEND Otolaryngology
DX: Z01.818 Encounter for other preprocedural examination (principal); D10.4 Benign neoplasm of tonsil
CPT/HCPCS: 82565; 84520; 70491; 36415; Q9967